=== PATIENT | female | born 1995 | race Caucasian/White ===

== ENCOUNTER 2022-08-01 17:04 | Emergency (ER) | payer OTHER ==
[2022-08-01 17:33] LABS: BASOPHIL 0.4 % (0-2); EOSINOPHIL 0 % (0-5); HGB 13.4 g/dl (12.5-16.0); LYMPHOCYTE 35.7 % (15-48); MCH 26.2 pg (25.0-31.0); MCHC 32.7 g/dL (32.0-36.0); MCV 80.1 fL (78.0-100.0); MONOCYTE 5.2 % (0-12); MPV 11.7 fL (6.0-9.5); NEUTROPHIL 58.4 % (41-80); NRBC 0; PLT 255 K/uL (150-400); RBC 5.12 M/uL (4.20-5.40); RDW 12.5 % (11.5-14.0); WBC 10.8 K/uL (4.0-10.5)
[2022-08-01 17:39] LABS: BILIRUBIN NEGATIVE (NEGATIVE); BLOOD NEGATIVE Ery/uL (NEGATIVE); CLARITY CLEAR (CLEAR); COLOR YELLOW (YELLOW); GLUCOSE (U) NORMAL (NORMAL); LEUKOCYTES NEGATIVE Leu/uL (NEGATIVE); NITRITE NEGATIVE (NEGATIVE); PROTEIN NEGATIVE (NEGATIVE); SPECIFIC GRAVITY >=1.030 (1.001-1.030); UROBILINOGEN 0.2 mg/dL (0.2-1.0); pH 5.5 (5.0-9.0)
[2022-08-01 17:56] LABS: ALBUMIN 4.1 g/dL (3.4-5.0); BILIRUBIN - TOTAL 0.4 mg/dL (0.2-1.0); BUN/CREAT RATIO (CALC) 14.1 RATIO; CREATININE 0.85 mg/dL (0.51-0.95); GLOBULIN (CALCULATION) 4.5 g/dL; POTASSIUM 3.7 mmol/L (3.5-5.1); TOTAL PROTEIN 8.6 g/dL (6.4-8.2)
== END 2022-08-01 19:25 | disposition home or self-care (01) ==
LOC: FER 17:04
PROVIDERS: Physician Assistant
DX: R07.9 Chest pain, unspecified (principal); Z88.1 Allergy status to other antibiotic agents; Z28.310 Unvaccinated for COVID-19
CPT/HCPCS: 36415; 71045; 80053; 81003; 84484; 85025; 85379; 93005